=== PATIENT | male | born 1960 | race Caucasian/White ===

== ENCOUNTER 2018-01-11 06:00 | Day surgery (SDC) | payer MEDICARE, OTHER ==
[~2018-01-11] VITALS: Ht 182.9 cm; Wt 116.0 kg
[~2018-01-11 06:00] MED LIST: SODIUM CHLORIDE 0.9% 1,000 ML IV ONE
[2018-01-11] MEDS ORDERED: EPINEPHrine 1:1,000 [1 MG/ML] AMP SQ ONE (06:01)
[2018-01-11] MEDS ORDERED: LIDOCAINE 2% 30 ML JELLY TP ONE (06:01)
[2018-01-11] MEDS ORDERED: BENZOCAINE 20% 50 MCG/SPRAY 57 GM TP ONE (06:01)
[2018-01-11] MEDS ORDERED: ALBUTEROL SULFATE 2.5 MG/0.5 ML NEB SOLUTION NEB ONE (06:01)
[2018-01-11] MEDS ORDERED: LIDOCAINE 4% 50 ML SOLUTION TP ONE (06:01)
[2018-01-11] MEDS ORDERED: SODIUM CHLORIDE 0.9% 1,000 ML IV ONE (07:00)
[2018-01-11] MEDS ORDERED: CETI-290 PO (07:32)
[2018-01-11] MEDS ORDERED: TRAM50TA4 PO (07:32)
[2018-01-11] MEDS ORDERED: TRAZ-219 PO (07:32)
[2018-01-11] MEDS ORDERED: LISI-661 PO (07:32)
[2018-01-11] MEDS ORDERED: FLUT16H NASAL (07:32)
[2018-01-11] MEDS ORDERED: TAMS0.4C32 PO (07:32)
[2018-01-11] MEDS ORDERED: RANI150T7 PO (07:32)
[2018-01-11] MEDS ORDERED: CALC-959 PO (07:32)
[2018-01-11] MEDS ORDERED: MONT10TA21 PO (07:32)
[2018-01-11] MEDS ORDERED: DEXL30CA3 PO (07:32)
[2018-01-11] MEDS ORDERED: BUDE10.2 IH (07:32)
[2018-01-11] MEDS ORDERED: ROSU20 PO (07:32)
[2018-01-11] MEDS ORDERED: FEBU40T PO (07:32)
[2018-01-11] MEDS ORDERED: COLC0.6T67 PO (07:32)
[2018-01-11] MEDS ORDERED: ALBU8.5H8 IH (07:32)
[2018-01-11] MEDS ORDERED: FentaNYL CITRATE-PF 100 MCG/2 ML VIAL ONE (07:37)
[2018-01-11] MEDS ORDERED: MIDAZOLAM HCL 2 MG/2 ML VIAL ONE (07:37)
[2018-01-11] MEDS ORDERED: MethylPREDNISolone SOD SUCC 125 MG/2 ML VIAL IVP ONE (08:15)
[2018-01-11] MEDS ORDERED: OXYGEN THERAPY IH SCH (20:00)
== END 2018-01-11 10:10 | disposition home or self-care (01) ==
LOC: SURGERY 06:00
PROVIDERS: ATTEND Internal Medicine Critical Care Medicine
DX: J38.4 Edema of larynx (principal); B37.0 Candidal stomatitis; J84.111 Idiopathic interstitial pneumonia, not otherwise specified; J98.09 Other diseases of bronchus, not elsewhere classified; J98.8 Other specified respiratory disorders; J45.998 Other asthma; G47.33 Obstructive sleep apnea (adult) (pediatric); K21.9 Gastro-esophageal reflux disease without esophagitis; M10.9 Gout, unspecified; F32.9 Major depressive disorder, single episode, unspecified; Z91.013 Allergy to seafood; Z87.891 Personal history of nicotine dependence; Z87.438 Personal history of other diseases of male genital organs; Z79.891 Long term (current) use of opiate analgesic; Z79.899 Other long term (current) drug therapy
CPT/HCPCS: 31623; 31624; 71045; 87015; 87070; 87205; 87206; 87220; 88108; 88312; J0171; J2250; J3010; J7030